=== PATIENT | male | born 1995 | race Caucasian/White ===

== ENCOUNTER → 2023-07-01 10:17 | Outpatient (REF) | payer BC, SELFPAY | LOC: HWRAD 10:17 | PROVIDERS: ATTENDING PHYSICIAN Family Medicine | DX: R59.1 Generalized enlarged lymph nodes (principal); R61 Generalized hyperhidrosis; R51.9 Headache, unspecified | CPT/HCPCS: 71270; 74178; Q9967 ==

== ENCOUNTER → 2023-07-10 10:29 | Outpatient (REF) | payer BC, SELFPAY ==
[2023-07-10 10:44] VITALS: BP 141/80; BP_SYST 87
[2023-07-10 11:54] VITALS: BP 133/78; BP_SYST 65
== END ==
LOC: RADI 10:29
PROVIDERS: ATTENDING PHYSICIAN Family Medicine
DX: I88.8 Other nonspecific lymphadenitis (principal)
CPT/HCPCS: 88172; 88312; 38505; 76942; 88333; 88334; 88341; 88342

== ENCOUNTER 2023-09-07 06:14 | Day surgery (SDC) | payer BC, SELFPAY ==
[2023-09-07] VITALS (9 sets, daily range): BP systolic 100–132; BP diastolic 61–78; BMI 28.6
[2023-09-07] MEDS: TYLENOL 1000 MG PO (06:40)
[2023-09-07] MEDS: NORMOSOL-R 1000 IV (06:40)
--- NOTE | 2023-09-07 08:25 | OR.RPT ---
Addendum entered and electronically signed by Geoffrey Padilla MD 09/07/23 10:53:
The assistance of Lucille CONDE was required due to the complexity of the procedure. During the procedure Lucille CONDE assisted with retraction, resection, and closure of the wound.
Original Note:
Operative Report
Operative Report
Primary Surgeon: Randy
Assisting: Lucille CONDE
Pre-op Diagnosis: Left inguinal lymphadenopathy
Post-op Diagnosis: Same
Procedure Performed: Excisional biopsy left inguinal lymph node
Anesthesia Type: LMA
Specimen / Cultures: Left inguinal lymph node
Estimated Blood Loss: 3cc
Complications: None immediate
Operative Findings: 2cm slightly firm cluster of nodes excised in toto
Date of Surgery:09/07/23
Indications: This 28M developed a lymphadenopathy. Fine needle aspiration was benign. Excisional biopsy was elected for confirmation as his symptoms persist.
PROCEDURE: After informed consent was obtained, the patient was marked in the preoperative suite and then the patient was brought to the operative suite and placed supine on the operating table. The patient was sedated, prepped and draped in the
usual sterile manner and an adequate local anesthetic was administered using Marcaine.
An incision was made with a #15 blade over the lump and carried down to the subcutaneous tissue with electrocautery. The subcutaneous tissue was divided with a hemostat and electrocautery until the lymph node cluster was exposed. The nodes were
gently grasped with a Amelia grasper and elevated. Surrounding and deep attachments were controlled with electrocautery taking care not to burn the specimen. The specimen was liberated and passed off the table.
The wound was then irrigated with copious sterile saline, and hemostasis was obtained using Bovie electrocautery. The skin was approximated with 3-0 Vicryl deep dermal interrupted sutures and 4-0 monocryl suture in a subcuticular fashion. Topical
skin glue was then applied. All surgical counts were reported as correct.
The patient tolerated the procedure well and was taken to the PACU in stable condition.
--- NOTE | 2023-09-07 09:57 | PTCARENOTE ---
Wrote to Dr. Padilla to see if their are more d/c instructions to add. MD is going to put in more instructions prior to patients discharge. Will monitor patient.
--- NOTE | 2023-09-07 10:45 | PTCARENOTE ---
D/c instructions added at 1040. Patient d/c at 1045 after instructions were given. Will monitor patient.
== END 2023-09-07 10:44 | disposition home or self-care (01) ==
LOC: SDS 06:14
PROVIDERS: ATTENDING PHYSICIAN Surgery; FAMILY PHYSICIAN Family Medicine
DX: I88.8 Other nonspecific lymphadenitis (principal)
CPT/HCPCS: 38531; 88305; 88312; 88333; 88341; 88342